=== PATIENT | male | born 1970 | race African-American/Black ===

== ENCOUNTER 2019-01-02 18:55 | Emergency (ER) | payer OTHER ==
[2019-01-02] MEDS ORDERED: diphenhydrAMINE 25 MG CAP ONE (19:14)
[2019-01-02] MEDS ORDERED: Dexamethasone 10 MG/ML VIAL ONE (19:14)
== END 2019-01-02 19:25 | disposition home or self-care (01) ==
LOC: ERS 18:55
DX: L25.0 Unspecified contact dermatitis due to cosmetics (principal); T49.8X5A Adverse effect of other topical agents, initial encounter
CPT/HCPCS: 99282; J1100; Q0163

== ENCOUNTER 2019-01-15 13:16 | Emergency (ER) | payer OTHER, SELFPAY | END 2019-01-15 13:40 | disposition home or self-care (01) | LOC: ERS 13:16 | DX: R21 Rash and other nonspecific skin eruption (principal); I10 Essential (primary) hypertension | CPT/HCPCS: 99281 ==

== ENCOUNTER 2019-03-11 22:17 | Emergency (ER) | payer OTHER, SELFPAY ==
[2019-03-11] MEDS ORDERED: Ibuprofen 800 MG TAB ONE (22:52)
[2019-03-11] MEDS ORDERED: Cyclobenzaprine 10 MG TAB ONE (22:52)
== END 2019-03-11 23:59 | disposition home or self-care (01) ==
LOC: ERS 22:17
DX: M54.5 Low back pain (principal); I10 Essential (primary) hypertension; Z79.899 Other long term (current) drug therapy
CPT/HCPCS: 99283

== ENCOUNTER 2019-04-12 20:18 | Emergency (ER) | payer OTHER | END 2019-04-12 22:36 | disposition home or self-care (01) | LOC: ERS 20:18 | DX: R05 Cough (principal); I10 Essential (primary) hypertension; Z79.899 Other long term (current) drug therapy | CPT/HCPCS: 99283 ==

== ENCOUNTER 2021-04-21 20:00 | Emergency (ER) | payer OTHER | END 2021-04-21 20:50 | disposition home or self-care (01) | LOC: ERS 20:00 | DX: J00 Acute nasopharyngitis [common cold] (principal); I10 Essential (primary) hypertension; Z79.899 Other long term (current) drug therapy | CPT/HCPCS: 99283 ==